=== PATIENT | male | born 1980 | race Caucasian/White ===

== ENCOUNTER 2022-07-30 08:46 | Outpatient (CLI) | payer BC, SELFPAY | END 2022-07-30 08:47 | disposition home or self-care (01) | PROVIDERS: PCP Emergency Medicine; Visit Provider Emergency Medicine | DX: Z00.00 Encounter for general adult medical examination without abnormal findings (principal); Z13.6 Encounter for screening for cardiovascular disorders; Z13.1 Encounter for screening for diabetes mellitus; Z12.5 Encounter for screening for malignant neoplasm of prostate | CPT/HCPCS: 80048; 80061; 84153 ==

== ENCOUNTER 2022-08-16 19:40 | Outpatient (CLI) | payer BC, SELFPAY ==
--- NOTE | 2022-08-26 08:48 | W.PM.SLEEP ---
Sleep Study Details Details Interpreting Provider: Andre Date of Sleep Study: 08/16/22 Sleep Study Details: STUDY TYPE:? Home ? BMI:? 24.2 ORDERING PROVIDER:? Sam INDICATION:? Concerns about sleep apnea ? SLEEP SUMMARY:? 436.8 minutes monitored RESPIRATORY SUMMARY:? AHI 9.2, supine 12.3, left lateral 3.4, right lateral 5.4 Low oxygen 86 0.1% of study oxygen less than 90% Snoring 5.1% PERIODIC LIMB MOVEMENTS OF SLEEP:? Not recorded CARDIAC:? Range 48-107, mean 65.8 beats per minute IMPRESSION:? Mild obstructive sleep apnea with supine position dependency. RECOMMENDATION: Treatment options could include CPAP AutoSet 4-17, dental appliance and/or airway expansion surgery.
== END 2022-08-16 19:41 | disposition home or self-care (01) ==
LOC: SLEEP 19:40
PROVIDERS: PCP Emergency Medicine; Visit Provider Emergency Medicine
DX: G47.33 Obstructive sleep apnea (adult) (pediatric) (principal)
CPT/HCPCS: 95806

== ENCOUNTER 2023-10-01 09:32 | Outpatient (CLI) | payer OTHER, SELFPAY | END 2023-10-01 09:33 | disposition home or self-care (01) | LOC: LKVREF 09:32 | PROVIDERS: PCP Emergency Medicine; Visit Provider Family Medicine | DX: Z80.42 Family history of malignant neoplasm of prostate (principal); Z12.5 Encounter for screening for malignant neoplasm of prostate; E78.2 Mixed hyperlipidemia; Z13.1 Encounter for screening for diabetes mellitus | CPT/HCPCS: 80061; 82947; G0103 ==